=== PATIENT | female | born 1955 | race Hispanic/Latino ===

== ENCOUNTER 2018-02-20 09:58 | Emergency (ER) | payer OTHER ==
[2018-02-20 10:09] VITALS: BP 172/83; PULSE 69; RESP 20; TEMP 97.7
[2018-02-20 10:16] VITALS: O2SAT 98
--- NOTE | 2018-02-20 10:29 | ED PDOC ---
Upper Extremity Pain/Injury Time Seen by Provider: 02/20/18 10:13 Chief Complaint (Nursing): Upper Extremity Problem/Injury Chief Complaint (Provider): Rigth arm pain s/p fall yesterday History Per: Patient History/Exam Limitations: no limitations Onset/Duration Of Symptoms: Days Current Symptoms Are (Timing): Still Present Quality: "Pain" Pain Scale Rating Of: 7 (With movement) Exacerbating Factor(s): Movement Additional Complaint(s): 62 yo female with no known medical problems presents with right arm pain s/p fall. PT states that she was getting out of a car the her jacket got caught causing her to spin around and fall onto the right arm. Pt states she iced, elevated and took NSAIDs last night and this morning but it does not seem to be getting better. PT reports localized pain to the mid-forearm. No numbness/ tingling. Past Medical History Reviewed: Historical Data, Nursing Documentation, Vital Signs Vital Signs: Last Vital Signs Temp 97.7 F 02/20/18 10:08 Pulse 69 02/20/18 10:08 Resp 20 02/20/18 10:08 BP 172/83 H 02/20/18 10:08 Pulse Ox 98 02/20/18 10:13 - Medical History PMH: No Chronic Diseases - Surgical History Surgical History: No Surg Hx - Family History Family History: States: No Known Family Hx - Living Arrangements Living Arrangements: With Family - Immunization History Hx Tetanus Toxoid Vaccination: No Hx Influenza Vaccination: No Hx Pneumococcal Vaccination: No - Home Medications Home Medications: Ambulatory Orders Medication Instructions Recorded traMADol [Ultram] 50 mg PO Q6H PRN #15 tab 02/20/18 - Allergies Allergies/Adverse Reactions: Allergies Allergy/AdvReac Type Severity Reaction Status Date / Time No Known Allergies Allergy Verified 02/20/18 10:13 Review of Systems ROS Statement: Except As Marked, All Systems Reviewed And Found Negative Constitutional: Negative for: Fever, Chills Musculoskeletal: Positive for: Arm Pain (Right) Skin: Negative for: Bruising Physical Exam - Reviewed Nursing Documentation Reviewed: Yes Vital Signs Reviewed: Yes - Physical Exam Appears: Positive for: Well, Non-toxic, No Acute Distress Head Exam: Positive for: ATRAUMATIC, NORMAL INSPECTION, NORMOCEPHALIC Skin: Positive for: Normal Color (No ecchymosis ), Warm Eye Exam: Positive for: Normal appearance ENT: Positive for: Normal ENT Inspection Neck: Positive for: Normal Respiratory: Negative for: Accessory Muscle Use, Respiratory Distress Pulses-Radial (L): 2+ Pulses-Radial (R): 2+ Back: Positive for: Normal Inspection Extremity: Negative for: Normal ROM (decreased elbow extension due to pain. Pain with supination of the right wrist ), Tenderness, Deformity, Swelling Neurologic/Psych: Positive for: Alert, Oriented - ECG O2 Sat by Pulse Oximetry: 98 Medical Decision Making Medical Decision Making: Possible radial head fx Posterior long arm splint placed with sling. No neurovascular compromise. Discussed f/u with orthopedics. Disposition - Clinical Impression Clinical Impression: Elbow injury - Patient ED Disposition Is Patient to be Admitted: No Counseled Patient/Family Regarding: Diagnosis, Need For Followup, Rx Given - Disposition Referrals: Mukesh Fowler III, MD [Staff Provider] - Disposition: Routine/Home Disposition Time: 11:18 Condition: GOOD Additional Instructions: Ice, elevation. F/u with orthopedics. Prescriptions: traMADol [Ultram] 50 mg PO Q6H PRN #15 tab PRN Reason: Pain Instructions: Radius Fracture Forms: [employer] ([place]yan)
--- NOTE | 2018-02-20 11:27 | RAD ---
PROCEDURE: Radiographs of the right elbow. HISTORY: Pain, fall COMPARISON: No prior. FINDINGS: BONES: There is an acute transverse nondisplaced fracture in the head of the radius. Bone alignment is normal. There is mild diffuse bone demineralization. 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 SOFT TISSUES: Normal. JOINT EFFUSION: There is a moderate joint effusion. OTHER FINDINGS: None. IMPRESSION: Acute nondisplaced fracture in the head of the radius and moderate joint effusion.
--- NOTE | 2018-02-20 11:29 | RAD ---
PROCEDURE: Radiographs of the Right Forearm HISTORY: Pain, fall COMPARISON: None available. TECHNIQUE: Frontal and lateral views obtained. FINDINGS: BONES: There is an acute transverse nondisplaced fracture in the head of the radius. Bone alignment is normal. There is mild diffuse bone demineralization. JOINT SPACES: Unremarkable. OTHER FINDINGS: None. IMPRESSION: Acute transverse nondisplaced fracture in the head of the radius.
== END 2018-02-20 11:49 | disposition home or self-care (01) ==
LOC: H.ER 09:58
DX: S59.901A Unspecified injury of right elbow, initial encounter (principal); W18.39XA Other fall on same level, initial encounter

== ENCOUNTER 2018-10-22 09:57 | Emergency (ER) | payer BC, OTHER ==
[2018-10-22 10:08] VITALS: TEMP 97.5; O2SAT 99; BMI 30.9
--- NOTE | 2018-10-22 11:12 | ED PDOC ---
Lower Extremity Pain/Injury Time Seen by Provider: 10/22/18 10:20 Chief Complaint (Nursing): Lower Extremity Problem/Injury History Per: Patient Additional Complaint(s): Pt. states approximately 3 weeks ago she developed "sciatica" on her L buttock travelling down the L leg. Reports buttock pain has improved with OTC NSAIDs but L leg pain persists. States she went back to work as the buttock pain resolved and due to her walking a lot at work L leg pain persisted. Pain is localized to to the L leg on the outer portion of the calf. Denies hx of DVT or PE, chest pain, SOB, trauma, numbness, tingling, rash, palpitations. Past Medical History Reviewed: Historical Data, Nursing Documentation, Vital Signs Vital Signs: Last Vital Signs Temp 97.5 F L 10/22/18 10:07 Pulse 74 10/22/18 10:07 Resp 16 10/22/18 10:07 BP 165/82 H 10/22/18 10:07 Pulse Ox 99 10/22/18 10:07 - Family History Family History: States: No Known Family Hx - Immunization History Hx Tetanus Toxoid Vaccination: No Hx Influenza Vaccination: No Hx Pneumococcal Vaccination: No - Home Medications Home Medications: Ambulatory Orders Medication Instructions Recorded RX: traMADol [Ultram] 50 mg PO Q6H PRN #15 tab 02/20/18 Meloxicam [Mobic] 15 mg PO DAILY PRN #10 tab 10/22/18 - Allergies Allergies/Adverse Reactions: Allergies Allergy/AdvReac Type Severity Reaction Status Date / Time No Known Allergies Allergy Verified 02/20/18 10:13 Wells Criteria for PE - Wells Criteria for Pulmonary Embolism Clinical Signs and Symptoms of DVT: No P.E is #1 Diagnosis, or Equally Likely: No Heart Rate >100: No Immobilization at least 3 days;Surgery previous 4 weeks: No Previous, objectively diagnosed PE or DVT: No Hemoptysis: No Malignancy w/treatment within 6 months, or palliative: No Total Score: 0 Review of Systems ROS Statement: Except As Marked, All Systems Reviewed And Found Negative Musculoskeletal: Positive for: Leg Pain Physical Exam - Physical Exam Appears: Positive for: Well, Non-toxic, No Acute Distress Skin: Positive for: Normal Color, Warm. Negative for: Rash Eye Exam: Positive for: Normal appearance Pulses-Dorsalis Pedis (L): 2+ Pulses-Dorsalis Pedis (R): 2+ Extremity: Positive for: Capillary Refill (< 2 seconds of L lower extremity), Other (b/l lower legs with varicose veins noted but no palpable cord; no calf tenderness b/l; FROM actively of b/l lower extremity; b/l lower extremity 5/5) Neurologic/Psych: Positive for: Alert, Oriented (x3) - ECG O2 Sat by Pulse Oximetry: 99 - Radiology X-Ray: Interpreted by Me (tib/fib x-ray) X-Ray Interpretation: No Acute Disease - Progress ED Course And Treament: Ultram 50mg PO, duplex L lower extremity vein, L tib/fib x-ray ordered. Duplex L lower extremity vein: negative as per radiology report. Disposition - Clinical Impression Clinical Impression: Leg pain - Patient ED Disposition Is Patient to be Admitted: No - Disposition Referrals: Rishabh Brown MD [Medical Doctor] - Disposition: Routine/Home Disposition Time: 13:06 Condition: STABLE Prescriptions: Meloxicam [Mobic] 15 mg PO DAILY PRN #10 tab PRN Reason: Pain Instructions: Muscle and Bone Pain (DC) Forms: [employer](TM) by [employer] ([place]i) Print Language: KHMER
--- NOTE | 2018-10-22 13:29 | US ---
Date of service: 10/22/2018 HISTORY: pain. PRIORS: None. FINDINGS: 2-D, color and duplex Doppler analysis of the lower extremity venous circulation using routine protocol from the femoral veins through the popliteal veins. Venous compressibility: Normal. Flow and augmentation patterns: Normal. Visualized veins upper third of calf: Normal. Ramirez cyst: None. IMPRESSION: No sonographic or Doppler evidence for DVT in left lower extremity.
--- NOTE | 2018-10-22 14:07 | RAD ---
Date of service: 10/22/2018 PROCEDURE: Radiographs of the left tibia and fibula. HISTORY: pain COMPARISON: None available. TECHNIQUE: Frontal and lateral views obtained. FINDINGS: BONES: No fracture or destructive lesion. JOINT SPACES: Unremarkable. OTHER FINDINGS: None. IMPRESSION: Unremarkable radiographs of the left tibia and fibula.
[2018-10-22 14:15] VITALS: BP 150/86; PULSE 70; RESP 18
== END 2018-10-22 13:20 | disposition home or self-care (01) ==
LOC: H.ER 09:57
DX: M79.606 Pain in leg, unspecified (principal)